=== PATIENT | male | born 1990 | race Caucasian/White ===

== ENCOUNTER 2023-09-18 11:02 | Emergency (ER) | payer SELFPAY ==
[2023-09-18 12:58] LABS: SARS-CoV-2 NAA Rapid Test DETECTED (NotDetected)
== END 2023-09-18 13:23 | disposition home or self-care (01) ==
LOC: CSHERS 11:02
DX: U07.1 COVID-19 (principal)
CPT/HCPCS: 87081; 87430; 99284